=== PATIENT | male | born 1940 | race Native Hawaiian/Other Pacific Islander ===

== ENCOUNTER 2019-06-29 21:00 | Emergency (ER) | payer OTHER ==
[~2019-06-29] VITALS: Ht 188 cm; Wt 81.6 kg
[2019-06-29 21:31] LABS: PLATELET COUNT 231 K/uL (142-355)
[2019-06-29] MEDS ORDERED: MELATONIN5 MG PO (21:34)
[2019-06-29] MEDS ORDERED: CARB25TA29 PO (21:35)
[2019-06-29] MEDS ORDERED: TRAZODONE HYDR100 MG PO (21:35)
[2019-06-29 21:36] LABS: POTASSIUM 3.1 mmol/L (3.6-5.2)
[2019-06-29] MEDS ORDERED: TAMS0.4C PO (21:36)
[2019-06-29 22:26] VITALS: BP 149/87; TEMP 98.2
[2019-06-29] MEDS ORDERED: ASPIRIN 81 LOW81 MG PO (23:27)
[2019-06-29] MEDS ORDERED: LORA2INJ21 INJ (23:28)
[2019-06-29] MEDS ORDERED: LORA0.5T17 PO (23:29)
[2019-06-29] MEDS ORDERED: CARV3.12 PO (23:31)
[2019-06-29] MEDS ORDERED: BISCOLAX10 MG RE (23:31)
[2019-06-29] MEDS ORDERED: ESCI20TA PO (23:32)
[2019-06-29] MEDS ORDERED: SIMV40TA57 PO (23:33)
== END 2019-06-29 22:26 | disposition other institution (70) ==
LOC: ED 21:00
PROVIDERS: Emergency Medicine
DX: F41.8 Other specified anxiety disorders (principal); E86.0 Dehydration; E87.6 Hypokalemia; Z04.6 Encounter for general psychiatric examination, requested by authority; Z79.899 Other long term (current) drug therapy
CPT/HCPCS: 36415; 80053; 81000; 85027; 87077; 87086; 87088; 87186; 93005; 99285; J2060